=== PATIENT | male | born 1970 | race Caucasian/White ===

== ENCOUNTER 2020-11-25 16:58 | Inpatient (IN) ==
[2020-11-25] MEDS ORDERED: Amiodarone Premix 360 MG/200 ML BAG IVC ONE ×2 (17:19→20:55)
[2020-11-25] MEDS ORDERED: Amiodarone Premix 150 MG/100 ML BAG IVPB ONE ×2 (17:19→20:55)
[2020-11-25 17:49] LABS: INR 3.2; Prothrombin Time 35.4 Seconds (9.4-12.1)
[2020-11-25 17:52] LABS: Activated Partial Thrombo Time 29.2 Seconds (26.0-36.0); Basophils % 0.3 %; Eosinophils # 0.1 K/mcL (0.0-0.6); Eosinophils % 1.3 %; Hematocrit 43.4 % (37.5-50.1); Hemoglobin 13.7 g/dL (12.9-16.9); Immature Granulocytes % 0.3 % (0-4); Lymphocytes # 1.9 K/mcL (0.6-4.6); Lymphocytes % 24.1 %; Mean Corpuscular HGB Conc 31.6 g/dL (31.6-35.5); Mean Corpuscular Hemoglobin 29.7 pg (28.0-33.3); Mean Corpuscular Volume 94.1 fL (83.0-100.0); Mean Platelet Volume 9.2 fL (9.4-12.4); Monocytes # 0.6 K/mcL (0.0-1.3); Monocytes % 7.3 %; Neutrophils # 5.1 K/mcL (1.6-8.9); Platelet Count 168 K/mcL (140-400); Red Blood Count 4.61 M/mcL (4.19-5.50); Red Cell Distribution Width 13.5 % (11.5-14.5); Segmented Neutrophils % 66.7 %; White Blood Count 7.7 K/mcL (4.3-11.1)
[2020-11-25] MEDS: DilTIAZem 50 MG/50 ML IV.SOLN IVC SCH ×2 (18:31→22:00)
[2020-11-25 19:28] LABS: Alanine Aminotransferase 115 Units/L (7-52); Albumin 3.7 g/dL (3.5-5.7); Albumin/Globulin Ratio 1.5 (1.1-2.2); Alkaline Phosphatase 86 Units/L (34-104); Aspartate Amino Transferase 59 Units/L (13-39); BUN/Creatinine Ratio 32 (6-26); Bilirubin,Direct 0.1 mg/dL (0.0-0.2); Bilirubin,Indirect 0.6 mg/dL (0.0-1.0); Bilirubin,Total 0.7 mg/dL (0.3-1.0); Blood Urea Nitrogen 23 mg/dL (6-20); Calcium 8.6 mg/dL (8.6-10.3); Carbon Dioxide 25 mEq/L (23-29); Chloride 111 mEq/L (98-107); Globulin 2.5 g/dL (2.4-3.5); Glucose 106 mg/dL (70-105); Magnesium 2.1 mg/dL (1.6-2.6); Osmolality,Calculated 296 (280-300); Potassium 4.7 mEq/L (3.5-5.1); Sodium 141 mEq/L (136-145); Total Protein 6.2 g/dL (6.4-8.9); Troponin I 0.03 ng/mL (< 0.04); eGFR For African Americans > 60 (> 60); eGFR For Non-African Americans > 60 (> 60)
[2020-11-25] MEDS ORDERED: Naloxone 0.4 MG/ML INJ IVP PRN (20:55)
[2020-11-25] MEDS ORDERED: Furosemide 40 MG/4 ML VIAL IVP ONE (21:39)
[2020-11-26 00:20] LABS: Acetaminophen < 10 mcg/mL (10-20); Salicylate < 2.5 mg/dL (15.0-30.0)
[2020-11-26] MEDS: DilTIAZem 50 MG/50 ML IV.SOLN IVC SCH ×4 (01:40→09:51)
[2020-11-26] MEDS: Amiodarone Premix 360 MG/200 ML BAG IVC SCH ×2 (04:30→13:52)
[2020-11-26 04:50] LABS: Hemoglobin 13.3 g/dL (12.9-16.9); Mean Corpuscular HGB Conc 31.7 g/dL (31.6-35.5); Mean Corpuscular Hemoglobin 30.4 pg (28.0-33.3); Mean Corpuscular Volume 95.9 fL (83.0-100.0); Mean Platelet Volume 9.3 fL (9.4-12.4); Platelet Count 171 K/mcL (140-400); Red Blood Count 4.38 M/mcL (4.19-5.50); Red Cell Distribution Width 13.5 % (11.5-14.5); White Blood Count 6.6 K/mcL (4.3-11.1)
[2020-11-26 05:04] LABS: BUN/Creatinine Ratio 25 (6-26); Blood Urea Nitrogen 19 mg/dL (6-20); Calcium 8.5 mg/dL (8.6-10.3); Carbon Dioxide 26 mEq/L (23-29); Chloride 107 mEq/L (98-107); Chol/HDL Ratio 4.3 (0-4.9); Cholesterol 155 mg/dL (< 200); Glucose 107 mg/dL (70-105); HDL Cholesterol 36 mg/dL (40-59); LDL Cholesterol,Calculated 104 mg/dL (< 100); Osmolality,Calculated 295 (280-300); Phosphorous 2.4 mg/dL (2.7-4.5); Potassium 3.8 mEq/L (3.5-5.1); Sodium 141 mEq/L (136-145); Triglycerides 77 mg/dL (< 150); eGFR For African Americans > 60 (> 60); eGFR For Non-African Americans > 60 (> 60)
[2020-11-26 05:05] LABS: INR 3.1; Prothrombin Time 34.7 Seconds (9.4-12.1)
[2020-11-26 05:06] LABS: Albumin 3.8 g/dL (3.5-5.7); Albumin/Globulin Ratio 1.5 (1.1-2.2); Bilirubin,Direct 0.1 mg/dL (0.0-0.2); Bilirubin,Indirect 0.7 mg/dL (0.0-1.0); Bilirubin,Total 0.8 mg/dL (0.3-1.0); Globulin 2.5 g/dL (2.4-3.5); Total Protein 6.3 g/dL (6.4-8.9)
[2020-11-26 07:02] LABS: Bilirubin,Urine Negative (Negative); Blood,Urine Moderate (Negative); Clarity,Urine Clear (Clear); Color,Urine Light-Yellow (Yellow); Glucose,Urine (UA) Normal (Normal); Ketones,Urine Negative (Negative); Leukocyte Esterase,Urine Negative (Negative); Mucus,Urine Few per lpf (None-Few); Nitrite,Urine Negative (Negative); PH,Urine 5.5 pH Units (5.0-8.0); Protein,Urine Negative (Neg-Trace); RBC,Urine 15-30 per hpf (0-3); Specific Gravity,Urine 1.019 (1.010-1.025); Squamous Epithelial Cell,Urine Few per hpf (None-Few); Urobilinogen,Urine Normal (Normal)
[2020-11-26 08:06] LABS: Amphetamine Screen,Urine Negative ng/mL (Cutoff=1000); Barbiturate Screen,Urine Negative ng/mL (Cutoff=200)
[2020-11-26 08:07] LABS: Benzodiazepines Screen,Urine Negative ng/mL (Cutoff=300); Cannabinoid Screen,Urine Negative ng/mL (Cutoff = 50); Cocaine Screen,Urine Negative ng/mL (Cutoff= 300); Opiate Screen,Urine Negative ng/mL (Cutoff=300); Phencyclidine Screen,Urine Negative ng/mL (Cutoff=25)
[2020-11-26] MEDS ORDERED: Perflutren Lipid Microsphere 1.3 ML in 0.9 % Sodium Chloride 8.7 ML IVP PRN (08:45)
[2020-11-26] MEDS ORDERED: Isovue-370 500 ML BOTTLE IVP ONE (10:19)
[2020-11-26] MEDS ORDERED: Acetaminophen 325 MG TABLET PO PRN (10:58)
[2020-11-26] MEDS: Metoprolol XL (24 HR) Succ 25 MG TAB.ER.24H PO SCH ×2 (11:10→20:24)
[2020-11-26] MEDS: Furosemide 40 MG/4 ML VIAL IVP SCH ×2 (11:10→20:24)
[2020-11-26] MEDS ORDERED: *HR* Digoxin 0.5 MG/2 ML AMPUL IVP ONE (11:13)
[2020-11-26] MEDS ORDERED: traZODone 50 MG TABLET PO PRN (12:02)
[2020-11-26] MEDS: *HR* Digoxin 0.5 MG/2 ML AMPUL IVP SCH ×2 (17:09→23:04)
[2020-11-26] MEDS ORDERED: Warfarin perPT PO PRN (18:00)
[2020-11-26] MEDS ORDERED: *HR* Warfarin 5 MG TABLET PO ONE (18:00)
[2020-11-27 02:00] LABS: Basophils % 0.4 %; Eosinophils # 0.1 K/mcL (0.0-0.6); Eosinophils % 1.2 %; Hemoglobin 13.9 g/dL (12.9-16.9); Immature Granulocytes % 0.1 % (0-4); Lymphocytes % 24.2 %; Mean Corpuscular HGB Conc 31.6 g/dL (31.6-35.5); Mean Corpuscular Hemoglobin 29.4 pg (28.0-33.3); Mean Corpuscular Volume 93.2 fL (83.0-100.0); Mean Platelet Volume 9.3 fL (9.4-12.4); Monocytes # 0.6 K/mcL (0.0-1.3); Monocytes % 7.3 %; Neutrophils # 5.6 K/mcL (1.6-8.9); Platelet Count 184 K/mcL (140-400); Red Blood Count 4.72 M/mcL (4.19-5.50); Red Cell Distribution Width 13.4 % (11.5-14.5); Segmented Neutrophils % 66.8 %; White Blood Count 8.4 K/mcL (4.3-11.1)
[2020-11-27 02:03] LABS: INR 2.5; Prothrombin Time 28.3 Seconds (9.4-12.1)
[2020-11-27] MEDS: Amiodarone Premix 360 MG/200 ML BAG IVC SCH ×2 (02:11→14:46)
[2020-11-27 02:21] LABS: BUN/Creatinine Ratio 21 (6-26); Blood Urea Nitrogen 19 mg/dL (6-20); Calcium 8.7 mg/dL (8.6-10.3); Carbon Dioxide 28 mEq/L (23-29); Chloride 102 mEq/L (98-107); Glucose 102 mg/dL (70-105); Osmolality,Calculated 290 (280-300); Potassium 3.7 mEq/L (3.5-5.1); Sodium 139 mEq/L (136-145); eGFR For African Americans > 60 (> 60); eGFR For Non-African Americans > 60 (> 60)
[2020-11-27] MEDS: FLUoxetine 20 MG CAPSULE PO SCH (09:07)
[2020-11-27] MEDS: Metoprolol XL (24 HR) Succ 25 MG TAB.ER.24H PO SCH ×3 (09:08→20:16)
[2020-11-27] MEDS: Furosemide 40 MG/4 ML VIAL IVP SCH ×2 (09:08→20:15)
[2020-11-27] MEDS ORDERED: Amiodarone Premix 150 MG/100 ML BAG IVPB ONE (11:20)
[2020-11-27] MEDS ORDERED: *HR* Metoprolol 5 MG/5 ML VIAL IVP PRN (13:10)
[2020-11-27] MEDS ORDERED: *HR* Metoprolol 5 MG/5 ML VIAL IVP ONE (13:10)
[2020-11-27] MEDS: *HR* Digoxin 0.125 MG TABLET PO SCH (13:57)
[2020-11-27] MEDS ORDERED: *HR* Warfarin 7.5 MG TABLET PO ONE (18:00)
[2020-11-28 01:29] LABS: Basophils % 0.3 %; Eosinophils # 0.1 K/mcL (0.0-0.6); Eosinophils % 1.2 %; Hematocrit 46.8 % (37.5-50.1); Hemoglobin 15.1 g/dL (12.9-16.9); Immature Granulocytes % 0.1 % (0-4); Lymphocytes # 2.2 K/mcL (0.6-4.6); Lymphocytes % 28.9 %; Mean Corpuscular HGB Conc 32.3 g/dL (31.6-35.5); Mean Corpuscular Volume 92.9 fL (83.0-100.0); Mean Platelet Volume 9.4 fL (9.4-12.4); Monocytes # 0.6 K/mcL (0.0-1.3); Neutrophils # 4.6 K/mcL (1.6-8.9); Platelet Count 189 K/mcL (140-400); Red Blood Count 5.04 M/mcL (4.19-5.50); Red Cell Distribution Width 13.2 % (11.5-14.5); Segmented Neutrophils % 61.5 %; White Blood Count 7.5 K/mcL (4.3-11.1)
[2020-11-28 01:31] LABS: INR 2.1; Prothrombin Time 24.3 Seconds (9.4-12.1)
[2020-11-28 01:52] LABS: Alanine Aminotransferase 87 Units/L (7-52); Albumin 4.1 g/dL (3.5-5.7); Albumin/Globulin Ratio 1.5 (1.1-2.2); Alkaline Phosphatase 102 Units/L (34-104); Aspartate Amino Transferase 33 Units/L (13-39); BUN/Creatinine Ratio 27 (6-26); Bilirubin,Direct 0.2 mg/dL (0.0-0.2); Bilirubin,Indirect 0.9 mg/dL (0.0-1.0); Bilirubin,Total 1.1 mg/dL (0.3-1.0); Blood Urea Nitrogen 25 mg/dL (6-20); Carbon Dioxide 27 mEq/L (23-29); Chloride 102 mEq/L (98-107); Globulin 2.7 g/dL (2.4-3.5); Glucose 109 mg/dL (70-105); Osmolality,Calculated 295 (280-300); Potassium 3.8 mEq/L (3.5-5.1); Sodium 140 mEq/L (136-145); Total Protein 6.8 g/dL (6.4-8.9); eGFR For African Americans > 60 (> 60); eGFR For Non-African Americans > 60 (> 60)
[2020-11-28] MEDS: Amiodarone Premix 360 MG/200 ML BAG IVC SCH ×2 (03:04→16:32)
[2020-11-28] MEDS: Furosemide 40 MG/4 ML VIAL IVP SCH ×2 (07:14→19:26)
[2020-11-28] MEDS: FLUoxetine 20 MG CAPSULE PO SCH (07:14)
[2020-11-28] MEDS: Metoprolol XL (24 HR) Succ 25 MG TAB.ER.24H PO SCH ×2 (07:14→15:18)
[2020-11-28] MEDS: *HR* Digoxin 0.125 MG TABLET PO SCH (07:14)
[2020-11-28] MEDS ORDERED: Tetracaine/Benzocaine/Butamben 1 SPRAY AEROSOL MM ONE (10:13)
[2020-11-28] MEDS: *HR* Midazolam HCl 2 MG/2 ML VIAL IVP PRN ×4 (10:39→11:13)
[2020-11-28] MEDS: *HR* FentaNYL (PF) 100 MCG/2 ML VIAL IVP PRN ×2 (10:39→11:07)
[2020-11-28] MEDS: Metoprolol XL (24 HR) Succ 50 MG TAB.ER.24H PO SCH ×2 (14:23→19:26)
[2020-11-28] MEDS ORDERED: *HR* Warfarin 10 MG TABLET PO ONE (18:00)
[2020-11-29] MEDS: Metoprolol XL (24 HR) Succ 50 MG TAB.ER.24H PO SCH ×3 (00:12→12:37)
[2020-11-29] MEDS: Amiodarone Premix 360 MG/200 ML BAG IVC SCH (04:55)
[2020-11-29 06:43] LABS: Basophils % 0.2 %; Eosinophils # 0.1 K/mcL (0.0-0.6); Eosinophils % 1.5 %; Hematocrit 46.9 % (37.5-50.1); Hemoglobin 14.9 g/dL (12.9-16.9); Immature Granulocytes % 0.1 % (0-4); Lymphocytes % 24.1 %; Mean Corpuscular HGB Conc 31.8 g/dL (31.6-35.5); Mean Corpuscular Hemoglobin 29.4 pg (28.0-33.3); Mean Corpuscular Volume 92.5 fL (83.0-100.0); Mean Platelet Volume 9.4 fL (9.4-12.4); Monocytes # 0.7 K/mcL (0.0-1.3); Monocytes % 8.1 %; Neutrophils # 5.6 K/mcL (1.6-8.9); Platelet Count 182 K/mcL (140-400); Red Blood Count 5.07 M/mcL (4.19-5.50); Red Cell Distribution Width 13.2 % (11.5-14.5); White Blood Count 8.4 K/mcL (4.3-11.1)
[2020-11-29 06:44] LABS: INR 2.1; Prothrombin Time 23.6 Seconds (9.4-12.1)
[2020-11-29 07:05] LABS: BUN/Creatinine Ratio 30 (6-26); Blood Urea Nitrogen 28 mg/dL (6-20); Calcium 9.2 mg/dL (8.6-10.3); Carbon Dioxide 30 mEq/L (23-29); Chloride 102 mEq/L (98-107); Glucose 119 mg/dL (70-105); Osmolality,Calculated 295 (280-300); Potassium 3.8 mEq/L (3.5-5.1); Sodium 139 mEq/L (136-145); eGFR For African Americans > 60 (> 60); eGFR For Non-African Americans > 60 (> 60)
[2020-11-29] MEDS: Furosemide 40 MG/4 ML VIAL IVP SCH ×2 (07:19→21:03)
[2020-11-29] MEDS: *HR* Digoxin 0.125 MG TABLET PO SCH (07:19)
[2020-11-29] MEDS: FLUoxetine 20 MG CAPSULE PO SCH (07:19)
[2020-11-29] MEDS ORDERED: *HR* Midazolam HCl 2 MG/2 ML VIAL ONE ×2 (11:02→11:48)
[2020-11-29] MEDS ORDERED: 0.9 % Sodium Chloride 1,000 ML ONE (11:02)
[2020-11-29] MEDS ORDERED: *HR* FentaNYL (PF) 100 MCG/2 ML VIAL ONE ×2 (11:02→11:47)
[2020-11-29] MEDS: *HR* Amiodarone 200 MG TABLET PO SCH ×2 (12:59→21:03)
[2020-11-29] MEDS ORDERED: *HR* Heparin 5,000 UNIT/ML VIAL IVP PRN ×2 (15:51)
[2020-11-29 16:40] LABS: Hematocrit 48.2 % (37.5-50.1); Hemoglobin 15.3 g/dL (12.9-16.9); Mean Corpuscular HGB Conc 31.7 g/dL (31.6-35.5); Mean Corpuscular Hemoglobin 29.5 pg (28.0-33.3); Mean Corpuscular Volume 92.9 fL (83.0-100.0); Mean Platelet Volume 9.4 fL (9.4-12.4); Platelet Count 203 K/mcL (140-400); Red Blood Count 5.19 M/mcL (4.19-5.50); Red Cell Distribution Width 13.2 % (11.5-14.5); White Blood Count 7.5 K/mcL (4.3-11.1)
[2020-11-29 16:49] LABS: Heparin anti-factor XA UFH < 0.04 IU/mL (0.30-0.70)
[2020-11-29 16:50] LABS: INR 2.1; Prothrombin Time 23.3 Seconds (9.4-12.1)
[2020-11-29] MEDS ORDERED: *HR* Warfarin 10 MG TABLET PO ONE (18:00)
[2020-11-29] MEDS: Heparin 25,000UNIT/250ML 1/2NS 25,000 UNIT/250 ML IV.SOLN IVC SCH (18:10)
[2020-11-29] MEDS: Metoprolol 100 MG TABLET PO SCH (21:03)
[2020-11-30 00:38] LABS: INR 2.3; Prothrombin Time 26.3 Seconds (9.4-12.1)
[2020-11-30 00:51] LABS: BUN/Creatinine Ratio 30 (6-26); Blood Urea Nitrogen 32 mg/dL (6-20); Calcium 9.1 mg/dL (8.6-10.3); Carbon Dioxide 30 mEq/L (23-29); Chloride 100 mEq/L (98-107); Glucose 170 mg/dL (70-105); Osmolality,Calculated 297 (280-300); Potassium 3.6 mEq/L (3.5-5.1); Sodium 138 mEq/L (136-145); eGFR For African Americans > 60 (> 60); eGFR For Non-African Americans > 60 (> 60)
[2020-11-30 00:55] LABS: Basophils % 0.4 %; Eosinophils # 0.1 K/mcL (0.0-0.6); Eosinophils % 1.7 %; Hematocrit 45.2 % (37.5-50.1); Hemoglobin 14.2 g/dL (12.9-16.9); Immature Granulocytes % 0.3 % (0-4); Lymphocytes # 2.4 K/mcL (0.6-4.6); Mean Corpuscular HGB Conc 31.4 g/dL (31.6-35.5); Mean Corpuscular Hemoglobin 29.2 pg (28.0-33.3); Mean Corpuscular Volume 92.8 fL (83.0-100.0); Mean Platelet Volume 9.8 fL (9.4-12.4); Monocytes # 0.6 K/mcL (0.0-1.3); Monocytes % 8.5 %; Neutrophils # 4.3 K/mcL (1.6-8.9); Platelet Count 187 K/mcL (140-400); Red Blood Count 4.87 M/mcL (4.19-5.50); Red Cell Distribution Width 13.2 % (11.5-14.5); Segmented Neutrophils % 57.1 %; White Blood Count 7.5 K/mcL (4.3-11.1)
[2020-11-30] MEDS: Heparin 25,000UNIT/250ML 1/2NS 25,000 UNIT/250 ML IV.SOLN IVC SCH (05:33)
[2020-11-30] MEDS: *HR* Amiodarone 200 MG TABLET PO SCH (08:05)
[2020-11-30] MEDS: FLUoxetine 20 MG CAPSULE PO SCH (08:06)
[2020-11-30] MEDS: Metoprolol 100 MG TABLET PO SCH (08:07)
[2020-11-30] MEDS: Furosemide 40 MG/4 ML VIAL IVP SCH (08:07)
[2020-11-30] MEDS ORDERED: lisinopriL 5 MG TABLET PO SCH (09:00)
[2020-11-30] MEDS ORDERED: Spironolactone 12.5 MG TABLET PO SCH (10:15)
[2020-11-30 11:12] VITALS: BP 108/67
[2020-11-30] MEDS ORDERED: Metoprolol XL (24 HR) Succ 50 MG TAB.ER.24H PO SCH (21:00)
== END 2020-11-30 15:21 | disposition home or self-care (01) | DRG 308 ==
LOC: EMEROOARM 16:58 → 2ANU 16:58 → SUATTDRO 20:09 → 2ANU 21:00 → 2NNU 21:05
PROVIDERS: ADMIT Family Medicine; ATTEND Internal Medicine